=== PATIENT | male | born 1995 | race Caucasian/White ===

== ENCOUNTER → 2020-12-26 16:33 | Outpatient (CLI) | payer OTHER, SELFPAY ==
[2020-12-26 17:49] LABS: Absolute Lymphocyte Count 1.62 X10^3/uL (0.83-4.51); Absolute Neutrophil Count 3.6 X10^3/uL (2.0-7.7); Basophil# 0.03 X10^3/uL; Basophil% 0.5 % (0-1); Eosinophil# 0.19 X10^3/uL; Eosinophils% 3.3 % (0-5); Hemoglobin 15.4 g/dL (13.0-16.5); Lymphocyte # 1.62 X10^3/ul (0.83-4.51); Lymphocyte % 27.7 % (19-41); Mean Corp Hgb Conc 32.8 g/dL (32-36); Mean Corpuscular Hgb 29.6 pg (27.0-32.0); Mean Corpuscular Volume 90.2 fL (80-94); Mean Platelet Vol. 10.7 fl (6.2-12.0); Monocyte# 0.34 X10^3/uL; Monocyte% 5.8 % (0-10); NRBC Flagged by Analyzer 0 % (0-5); Neutrophil # 3.64 X10^3/uL (2.7-7.7); Neutrophil % 62.4 % (47-70); Platelet Count 290 K/mm3 (150-450); RBC Distribution Width CV 11.9 % (11.6-14.6); RBC Distribution Width SD 39.5 fl (35.1-43.9); Red Blood Count 5.21 M/mm3 (4.6-6.2); White Blood Count 5.8 K/mm3 (4.4-11.0)
[2020-12-26 18:47] LABS: ALB/GLOB Ratio 1.6 RATIO (0.9-2.4); AST(SGOT) 20 U/L (15-37); Alanine Aminotransfer ALT/SGPT 37 U/L (16-61); Albumin, Serum 4.7 g/dL (3.2-5.0); Alkaline Phosphatase 72 U/L (45-117); Anion Gap 6 (5-15); BUN 14 mg/dL (7-18); BUN/Creat Ratio 15.7 RATIO (10-20); CRP < 2.90 mg/L (0.0-3.0); Calcium,Total 8.8 mg/dL (8.5-10.1); Chloride 102 mmol/L (98-107); Cholesterol 156 mg/dL (200); Creatinine, Serum 0.89 mg/dL (0.70-1.30); EST Glomerular Filtration Rate 111 mL/min (>60); Est Glom Filt Rate - Afr Amer 134 mL/min (>60); Globulin 2.9 g/dL (2.2-4.2); Glucose 82 mg/dL (74-106); High Density Lipoprotein 59 mg/dL; Potassium 4.4 mmol/L (3.5-5.1); Protein, Total 7.6 g/dL (6.4-8.2); Rheumatoid Factor < 10.0 IU/mL (<15); Sodium Level 139 mmol/L (136-145)
[2020-12-28 18:31] LABS: ANTINUCLEAR ANTIBODIES DIRECT Negative (Negative)
== END ==
PROVIDERS: PCP Family Medicine; Referring Provider Family Medicine; Visit Provider Family Medicine
DX: Z13.220 Encounter for screening for lipoid disorders (principal); M19.90 Unspecified osteoarthritis, unspecified site
CPT/HCPCS: 36415; 80053; 82465; 83718; 85025; 86038; 86140; 86431

== ENCOUNTER → 2022-12-01 | Outpatient (CLI) | payer OTHER, SELFPAY ==
[2022-12-01 19:03] LABS: HIV - WCH Non-Reactive (Nonreactive); Syphilis Antibodies Non-reactive
[2022-12-02 00:18] LABS: Probe Check PASS; Sample Adequacy Control PASS; Specimen Processing Control PASS; Trichomonas Vag DNA by PCR Negative (Negative)
== END | disposition home or self-care (01) ==
LOC: MFPLAB 16:43
PROVIDERS: PCP Family Medicine; Visit Provider Family Medicine
DX: Z11.3 Encounter for screening for infections with a predominantly sexual mode of transmission (principal)
CPT/HCPCS: 36415; 86703; 86780; 87491; 87591; 87661

== ENCOUNTER 2023-08-05 08:53 | Emergency (ER) | payer OTHER, SELFPAY ==
[2023-08-05 08:56] VITALS: BP 128/83; PULSE 87; RESP 16; TEMP 35.8; O2SAT 100; BMI 20.2
--- NOTE | 2023-08-05 09:24 | EDS_ITS ---
HPI History of Present Illness Chief Complaint: Fever Informant: patient Onset/Context/Timing Onset: Days Context: Gradual Onset Timing: Continuous Current Severity: Moderate Maximum Severity: Moderate Narrative Narrative: 28-year-old male status post anal sex. Complaining of rectal pain with fever as high as 103.3 since Thursday. No prior history. No history of abscess. Denies any dysuria. No cough. No abdominal pain. Prior similar symptoms: No Recent Illness/Hospitalization: No PFSH PFSH Medical History ADHD Anorectal hemorrhage Home Medications Lisdexamfetamine Dimesylate [Vyvanse] 50 mg PO DAILY 07/10/14 [History Last Taken Unknown] ciprofloxacin HCl 500 mg tablet (Cipro) 500 mg PO BID 7 days #14 tabs 08/05/23 [Rx Last Taken Unknown] dextroamphetamine-amphetamine 7.5 mg tablet 2 tab PO BID 08/05/23 [History Last Taken Unknown] metronidazole 500 mg tablet 500 mg PO Q8H 7 days #21 tabs 08/05/23 [Rx Last Taken Unknown] Allergy/AdvReac Type Severity Reaction Status Date / Time lactulose Allergy Mild Rash Verified 08/05/23 08:53 Surgical History No pertinent past surgical history Social History Smoking Status: Never smoker alcohol intake: current substance use type: does not use ROS ROS ED ROS Narrative Rectal pain. Fever. Review of Systems ROS Unobtainable: Denies due to encephalopathy Constitutional Constitutional ED: Reports fever(s); Denies chills Eyes Eyes: Denies blurry vision ENT ENT ED: Denies ear pain Cardiovascular Cardiovascular: Denies chest pain Respiratory/Chest Respiratory/Chest: Denies cough or dyspnea Gastrointestinal Gastrointestinal: Denies abdominal pain, constipation, diarrhea, melena, nausea or vomiting Genitourinary Genitourinary ED: Denies dysuria or hematuria Musculoskeletal Musculoskeletal: Denies arthralgias Integumentary Denies Abrasions or rash Neurologic Neurologic: Denies headache(s) Psychiatric Psychiatric: Denies anxiety Endocrine Endocrinology: Denies cold intolerance Hematologic/Lymphatic Hematologic/Lymphatic: Reports none Allergic/Immunologic Allergic/Immunologic ED: Denies mouth swelling, tongue swelling or urticaria EXAM Physical Exam Narrative Exam Narrative: 28-year-old male vital signs stable afebrile. Pulse ox 9% on room air no signs hypoxia. He does not look septic or toxic. He is in no distress. Sitting upright in bed. HEENT exam unremarkable. Mytrex membranes. Posterior pharynx normal. Neck nontender. No lymphadenopathy. Trachea midline. Lungs clear to auscultation bilaterally. Heart regular rhythm rate about 85 no murmur. Chest wall and ribs nontender. Abdomen soft nontender. Moving all 4 extremities. Nontender. No edema. Skin no rashes. Back nontender. Rectal exam he is tender at about 12 o'clock position on his anus. I do not feel an obvious abscess. Externally there is no redness, abscess or any signs of bleeding nor hemorrhoids. Patient is awake and alert no focal motor deficits. Const Vital Signs: 08/05/23 08:56 08/05/23 08:56 Temperature 96.5 F L Temperature Source Temporal Pulse Rate 87 Respiratory Rate 16 Blood Pressure 128/83 H 128/83 H Blood Pressure Mean 98 98 Pulse Ox 100 Oxygen Delivery Method Room Air Positive well nourished and well developed; Negative for obese, cachectic, contractures or unkempt General Appearance ED: well developed and NAD; Negative for unkempt, cachectic, contractures, cyanotic or diaphoretic Nutritional Appearance: Negative for cachectic or obese HEENT Reports moist mucous membranes; Denies dry mucous membranes Negative for trauma or tenderness Mouth ED: No dry mucous membranes Mouth: No dry mucous membranes Eyes PERRL and EOMs intact bilaterally General Eye ED: Negative for pale conjunctiva or scleral icterus Neck no lymphadenopathy, supple and no JVD General: Negative for tenderness Lymph Lymphatic: Negative for other Chest Wall inspection of chest normal and palpation of chest normal Chest: Negative for other Resp No normal respiratory effort and clear to auscultation bilaterally Effort and Inspection: Negative for retractions or pain with movement Auscultation: Negative for rales, rhonchi or wheezes Cardio regular rate, regular rhythm, S1 normal heart sound, S2 normal heart sound and no murmurs Palpation: Negative for palpable S3 or palpable S4 Rate: Negative for bradycardia or tachycardic Rhythm: Negative for abnormal rhythm GI normal to inspection, nondistended, normoactive bowel sounds, non-tender, non- distended and no masses Inspection: Negative for abdominal distention Auscultation: normoactive bowel sounds Palpation: soft; Negative for tender, guarding or rebound tenderness present Back/Spine no CVA tenderness General Back: Negative for CVA tenderness Cervical Spine: Negative for cervical spine tenderness Thoracic Spine / Upper Back: Negative for thoracic spinal tenderness Lumbar Spine / Lower Back: Negative for lumbar spinal tenderness Extremity normal to inspection General Extremety ED: Negative for edema or tenderness General Extremity: Negative for edema Neuro oriented x3, CN's II-XII intact bilaterally and no sensory deficits noted Sensorium / Orientation: alert; Negative for orientation impaired, lethargic or stuporous Motor Exam: strength 5/5 throughout; Negative for general weakness Psych mental status grossly normal Appearance: Negative for unkempt Attitude: No agitated Mood & Affect: Negative for depressed, anxious or tearful Skin no rashes or lesions noted, no wounds and skin turgor normal General Skin Exam: elasticity normal Lesions: No lesion noted Rashes: No rashes noted Trauma: Negative for abrasion Wounds: Negative for wounds noted MDM MDM MDM Narrative Medical decision making narrative: 28-year-old male complaining of rectal pain with fever. He does have pain on digital exam of his rectum. Concern for possible rectal abscess. Nothing seen externally. CT pelvis with IV contrast close screening labs. He does not anything for pain. Currently he is afebrile. Patient doing well on repeat exam at 10:45 AM. Clinically looks well. Went over his test results and his CAT scan. Given the patient's history and risk factors. I am going to start him on Cipro Twice daily and Flagyl 3 times daily for 1 week. I will have him follow-up with general surgery Dr. Alberto Duncan who I discussed the patient's case with and care and he will follow him up in the office. Patient is comfortable with the plan and being discharged home. Lab Data Attestation: I reviewed the patient's lab results. Lab results narrative: CBC unremarkable. White count 5.8. H&H 14 and 42. Platelets 225. Electrolytes unremarkable gap of 5. BUN of 4 creatinine 0.7. Glucose 118. Labs: Laboratory Results - last 24 hr 08/05/23 09:35 WBC 5.8 RBC 4.78 Hgb 14.2 Hct 42.3 MCV 88.5 MCH 29.7 MCHC 33.6 RDW Std Deviation 39.0 RDW Coeff of Guerda 12.0 Plt Count 225 MPV 10.3 Immature Gran % (Auto) 0.300 Neut % (Auto) 75.1 H Lymph % (Auto) 13.6 L [place] % (Auto) 10.5 H Eos % (Auto) 0.2 Baso % (Auto) 0.3 Absolute Neuts (auto) 4.4 Absolute Lymphs (auto) 0.79 L Nucleated RBC % 0 Sodium 140 Potassium 4.0 Chloride 105 Carbon Dioxide 30.0 Anion Gap 5 BUN 4 L Creatinine 0.79 Estim Creat Clear Calc 127.06 Est GFR (MDRD) Af Amer 150 Est GFR (MDRD) Non-Af 124 BUN/Creatinine Ratio 5.1 L Glucose 118 H Calcium 8.8 Radiography Diagnostic Testing: Clinical Impression(s) from Imaging Studies Pelvis CT 08/05/23 10:03 IMPRESSION: No evidence of perianal fistula or perirectal abscess. Electronically Signed: Emeka Resendiz MD at 10:25 EDT , Discharge Plan Triage Chief Complaint: Fever ED Provider: Dayo Munoz Dx/Rx/DC Orders Clinical Impression: Fever, Anal or rectal pain Prescriptions: New ciprofloxacin HCl [Cipro] 500 mg tablet 500 mg PO BID 7 Days Qty: 14 0RF metronidazole 500 mg tablet 500 mg PO Q8H 7 Days Qty: 21 0RF No Action dextroamphetamine-amphetamine 7.5 mg tablet 2 tab PO BID Lisdexamfetamine Dimesylate [Vyvanse] 50 MG capsule 50 mg PO DAILY Primary Care Provider: Chris Valdes Referrals: Alberto Duncan MD [Med Staff - Active Staff] - As soon as possible Chris Valdes MD [Primary Care Provider] - Activity Restrictions/Additional Instructions: Warm soaks 3 times a day. Send no warmth of the bathwater. Motrin and Tylenol for pain. Cipro 1 pill twice a day for a week. Flagyl 1 pill 3 times a day for a week. Finished both prescriptions take them at the same time. Do not drink any alcohol while on the Flagyl it will make you very sick. Call and follow-up with the general surgeon Dr. Alberto Quezada to he can see you in the next week. If you are feeling a lot worse return. Disposition Disposition: Home, Self Care
[2023-08-05 09:46] LABS: Absolute Lymphocyte Count 0.79 X10^3/uL (0.83-4.51); Absolute Neutrophil Count 4.4 X10^3/uL (2.0-7.7); Basophil# 0.02 X10^3/uL; Basophil% 0.3 % (0-1); Eosinophil# 0.01 X10^3/uL; Eosinophils% 0.2 % (0-5); Hematocrit 42.3 % (40-54); Hemoglobin 14.2 g/dL (13.0-16.5); Lymphocyte # 0.79 X10^3/ul (0.83-4.51); Lymphocyte % 13.6 % (19-41); Mean Corp Hgb Conc 33.6 g/dL (32-36); Mean Corpuscular Hgb 29.7 pg (27.0-32.0); Mean Corpuscular Volume 88.5 fL (80-94); Mean Platelet Vol. 10.3 fl (6.2-12.0); Monocyte# 0.61 X10^3/uL; Monocyte% 10.5 % (0-10); NRBC Flagged by Analyzer 0 % (0-5); Neutrophil # 4.37 X10^3/uL (2.7-7.7); Neutrophil % 75.1 % (47-70); Platelet Count 225 K/mm3 (150-450); Red Blood Count 4.78 M/mm3 (4.6-6.2); White Blood Count 5.8 K/mm3 (4.4-11.0)
[2023-08-05 09:56] LABS: Anion Gap 5 (5-15); BUN 4 mg/dL (7-18); BUN/Creat Ratio 5.1 RATIO (10-20); Calcium,Total 8.8 mg/dL (8.5-10.1); Chloride 105 mmol/L (98-107); Creatinine, Serum 0.79 mg/dL (0.70-1.30); EST Glomerular Filtration Rate 124 mL/min (>60); Est Glom Filt Rate - Afr Amer 150 mL/min (>60); Estimated Creatinine Clearance 127.06 ml/min; Glucose 118 mg/dL (74-106); Sodium Level 140 mmol/L (136-145)
--- NOTE | 2023-08-05 10:03 | CT_ITS ---
EXAM: CT PELVIS WITH INTRAVENOUS CONTRAST CLINICAL INDICATION: fever w/ rectal pain ?? Abscess TECHNIQUE: Helically acquired images were obtained of the pelvis with intravenous contrast. This CT exam was performed using one or more of the following dose reduction techniques: automated exposure control, adjustment of the mA and/or kV according to patient size, and/or use of iterative reconstruction technique. CONTRAST: 100ML ISOVUE 300 COMPARISON: No relevant prior studies available. FINDINGS: BOWEL: No bowel distention. No focal inflammatory change. No evidence of perianal fistula or perirectal abscess. APPENDIX: No evidence of acute appendicitis. INTRAPERITONEAL SPACE: Trace amount of fluid noted within the vesicorectal pouch of uncertain significance. No free air. BLADDER: Urinary bladder is contracted. REPRODUCTIVE: Unremarkable as visualized. No mass. BONES/JOINTS: No suspicious lytic or blastic abnormality. SOFT TISSUES: Normal. No pelvic wall hernia. LYMPH NODES: Normal. No enlarged lymph nodes. CT/Pelvis WITH IV Contrast IMPRESSION: No evidence of perianal fistula or perirectal abscess. Electronically Signed: Emeka Resendiz MD at 10:25 EDT ,
[2023-08-05 10:53] VITALS: BP 128/80; PULSE 87; RESP 16; O2SAT 100
[2023-08-05 11:12] VITALS: BP 126/78; PULSE 87; RESP 16; TEMP 36.6; O2SAT 100
[2023-08-05] MEDS: metroNIDAZOLE 500 MG Tablet PO (11:18)
[2023-08-05] MEDS: Ciprofloxacin 500 MG Tablet PO (11:18)
== END 2023-08-05 11:23 | disposition home or self-care (01) ==
PROVIDERS: Emergency Provider Emergency Medicine; PCP Family Medicine; Visit Provider Emergency Medicine
DX: R50.9 Fever, unspecified (principal); K62.89 Other specified diseases of anus and rectum
CPT/HCPCS: 72193; 80048; 85025; 99284; Q9967; A4216

== ENCOUNTER → 2023-08-07 | Outpatient (CLI) | payer OTHER, SELFPAY ==
[2023-08-07 17:27] LABS: Hematocrit 44.9 % (40-54); Hemoglobin 14.7 g/dL (13.0-16.5); Mean Corp Hgb Conc 32.7 g/dL (32-36); Mean Corpuscular Hgb 29.4 pg (27.0-32.0); Mean Corpuscular Volume 89.8 fL (80-94); Mean Platelet Vol. 9.9 fl (6.2-12.0); Platelet Count 318 K/mm3 (150-450); RBC Distribution Width SD 39.5 fl (35.1-43.9); White Blood Count 6.2 K/mm3 (4.4-11.0)
[2023-08-07 18:10] LABS: AST(SGOT) 34 U/L (15-37); Alanine Aminotransfer ALT/SGPT 61 U/L (16-61); Alkaline Phosphatase 55 U/L (45-117); Anion Gap 6 (5-15); BUN 5 mg/dL (7-18); BUN/Creat Ratio 6.1 RATIO (10-20); Chloride 102 mmol/L (98-107); Creatinine, Serum 0.82 mg/dL (0.70-1.30); EST Glomerular Filtration Rate 120 mL/min (>60); Est Glom Filt Rate - Afr Amer 145 mL/min (>60); Globulin 3.9 g/dL (2.2-4.2); Glucose 102 mg/dL (74-106); Protein, Total 7.9 g/dL (6.4-8.2); Sodium Level 138 mmol/L (136-145)
[2023-08-07 18:27] LABS: HIV - WCH Non-Reactive (Nonreactive); Syphilis Antibodies Non-reactive
== END | disposition home or self-care (01) ==
LOC: LAB 17:11
PROVIDERS: PCP Family Medicine; Referring Provider Family Medicine; Visit Provider Family Medicine
DX: K61.0 Anal abscess (principal); R50.9 Fever, unspecified
CPT/HCPCS: 36415; 80053; 85027; 86140; 86703; 86780

== ENCOUNTER → 2023-08-25 | Outpatient (CLI) | payer OTHER, SELFPAY ==
[2023-08-25 17:46] LABS: Absolute Lymphocyte Count 1.88 X10^3/uL (0.83-4.51); Absolute Neutrophil Count 2.4 X10^3/uL (2.0-7.7); Basophil# 0.03 X10^3/uL; Basophil% 0.6 % (0-1); Eosinophil# 0.06 X10^3/uL; Eosinophils% 1.3 % (0-5); Hematocrit 44.1 % (40-54); Hemoglobin 14.7 g/dL (13.0-16.5); Lymphocyte # 1.88 X10^3/ul (0.83-4.51); Lymphocyte % 39.4 % (19-41); Mean Corp Hgb Conc 33.3 g/dL (32-36); Mean Corpuscular Hgb 29.5 pg (27.0-32.0); Mean Corpuscular Volume 88.6 fL (80-94); Mean Platelet Vol. 10.7 fl (6.2-12.0); Monocyte# 0.35 X10^3/uL; Monocyte% 7.3 % (0-10); NRBC Flagged by Analyzer 0 % (0-5); Neutrophil # 2.44 X10^3/uL (2.7-7.7); Neutrophil % 51.2 % (47-70); Platelet Count 274 K/mm3 (150-450); RBC Distribution Width CV 12.1 % (11.6-14.6); RBC Distribution Width SD 39.4 fl (35.1-43.9); Red Blood Count 4.98 M/mm3 (4.6-6.2); White Blood Count 4.8 K/mm3 (4.4-11.0)
[2023-08-25 18:27] LABS: CRP < 2.90 mg/L (0.0-3.0); PSA,Total- Diagnostic 0.89 ng/mL (0.0-4.0)
== END | disposition home or self-care (01) ==
LOC: MFPLAB 15:36
PROVIDERS: PCP Family Medicine; Visit Provider Family Medicine
DX: R39.11 Hesitancy of micturition (principal)
CPT/HCPCS: 36415; 84153; 85025; 86140